=== PATIENT | male | born 1940 | race Caucasian/White ===

== ENCOUNTER 2017-08-05 16:55 | Emergency (ER) | payer OTHER ==
--- NOTE | 2017-08-05 17:18 | PDOC ---
History of Present Illness - General History Source: Patient Exam Limitations: No Limitations - History of Present Illness Initial Comments: 08/05/17 17:47 The patient is a 76 year old male with past medical history of CAD. arrhythmia, htn, who presents to the ED with complaints of left arm pain and numbness that began last night. The patient describes the pain as a stabbing pain that radiates from his left neck and shoulder down his left arm. The pain is worsened with movement of his arm and neck and was not relieved by the two tylenol he took earlier. The patient denies any shortness of breath, chest pain , or palpitations. He denies performing any heavy lifting or twisting his neck or back. He denies any fevers or chills. <Chikis Seth - Last Filed: 08/05/17 17:47> <Gretta Rust - Last Filed: 08/06/17 07:19> - General Chief Complaint: Back Pain Stated Complaint: NUMBNESS LEFT ARM Time Seen by Provider: 08/05/17 17:17 Past History <Chikis Seth - Last Filed: 08/05/17 17:47> <Gretta Rust - Last Filed: 08/06/17 07:19> - Past Medical History Allergies/Adverse Reactions: Allergies Allergy/AdvReac Type Severity Reaction Status Date / Time No Known Allergies Allergy Verified 08/05/17 16:57 Home Medications: Ambulatory Orders Allopurinol [Zyloprim -] 200 mg PO DAILY 08/05/17 Amlodipine Besylate 5 mg PO DAILY 08/05/17 Atorvastatin Ca [Lipitor] 40 mg PO HS 08/05/17 Dabigatran Etexilate Mesylate [Pradaxa -] 150 mg PO BID 08/05/17 Hydrochlorothiazide [Hctz -] 25 mg PO DAILY 08/05/17 Metoprolol Tartrate 1.5 tab PO BID 08/05/17 Midodrine HCl 20 mg PO DAILY 08/05/17 Review of Systems - Review of Systems Able to Perform ROS?: Yes Comments:: 08/05/17 17:47 GENERAL/CONSTITUTIONAL: No fever or chills. No weakness. HEAD, EYES, EARS, NOSE AND THROAT: No change in vision. No ear pain or discharge. No sore throat. CARDIOVASCULAR: No chest pain or shortness of breath. RESPIRATORY: No cough, wheezing, or hemoptysis. GASTROINTESTINAL: No nausea, vomiting, diarrhea or constipation. GENITOURINARY: No dysuria, frequency, or change in urination. MUSCULOSKELETAL: Present: left arm pain No neck or back pain. SKIN: No rash NEUROLOGIC: Present: left arm numbness No headache, vertigo, loss of consciousness. ENDOCRINE: No increased thirst. No abnormal weight change. HEMATOLOGIC/LYMPHATIC: No anemia, easy bleeding, or history of blood clots. ALLERGIC/IMMUNOLOGIC: No hives or skin allergy. All Other Systems: Reviewed and Negative <OswaldleobardoChikis - Last Filed: 08/05/17 17:47> *Physical Exam - Vital Signs Last Vital Signs Temp Pulse Resp BP Pulse Ox 98.1 F 60 20 171/74 97 08/05/17 16:57 08/05/17 16:57 08/05/17 16:57 08/05/17 16:57 08/05/17 16:57 <Chikis Seth - Last Filed: 08/05/17 17:47> - Physical Exam Comments: GENERAL: Awake, alert, and fully oriented, in no acute distress HEAD: No signs of trauma EYES: PERRLA, EOMI, sclera anicteric, conjunctiva clear ENT: Auricles normal inspection, hearing grossly normal, nares patent, oropharynx clear without exudates. Moist mucosa NECK: Normal ROM, supple, no lymphadenopathy, JVD, or masses LUNGS: Breath sounds equal, clear to auscultation bilaterally. No wheezes, and no crackles HEART: Regular rate and rhythm, normal S1 and S2, no murmurs, rubs or gallops ABDOMEN: Soft, nontender, normoactive bowel sounds. No guarding, no rebound. No masses MSK: Normal range of motion, no edema. No clubbing or cyanosis. No cords, erythema, or tenderness. +Soft tissue tenderness to L trapezius muscles, with soft mobile mass at the base of the neck, left lateral area. NEUROLOGICAL: Cranial nerves II through XII grossly intact. Normal speech, normal gait. Motor and sensation intact. SKIN: Warm, Dry, normal turgor, no rashes or lesions noted. <Gretta Rust - Last Filed: 08/06/17 07:19> Heart Score/ECG Review - ECG Impressions Comment:: EKG read 17:45- sinus rhythm 61 bpm, no acute ST/T changes. +PVC x1. <Gretta Rust - Last Filed: 08/06/17 07:19> ED Treatment Course - LABORATORY CBC & Chemistry Diagram: 08/05/17 17:50 08/05/17 17:50 <Gretta Rust - Last Filed: 08/06/17 07:19> Medical Decision Making - Medical Decision Making 08/05/17 17:42 Symptoms suggest radiculopathy. Pt with significant cardiac history, therefore will obtain EKG and CE to rule out. However, the soft tissue mass and tenderness throughout the trapezius would suggest the pain is originating locally. Will obtain CT c-spine and soft tissue neck to further evaluate. 08/05/17 19:[address] Joe at shift change. Awaiting radiology readings for CTs as well as lab results. If wnl, may f/u outpatient. <Gretta Rust - Last Filed: 08/06/17 07:19> *DC/Admit/Observation/Transfer - Attestations Scribe Attestion: 08/05/17 17:48 Documentation prepared by Chikis Seth, acting as mobile paramedical examiner for Gretta Rust MD. <Chikis Seth - Last Filed: 08/05/17 17:47> - Discharge Dispostion Admit: No <Gretta Rust - Last Filed: 08/06/17 07:19> Diagnosis at time of Disposition: Cervical radiculopathy - Discharge Dispostion Disposition: HOME Condition at time of disposition: Stable - Patient Instructions Additional Instructions: For the pain take Tylenol as directed on the bottle. I'm giving you a steroid that should also help with the inflammation and pain. Otherwise U can try heat or ice. We will give you a cervical collar that you can wear if it is helpful. When you get back to [place] follow-up with your doctor regarding further management. Return to the emergency department immediately with ANY new, persistent or worsening symptoms. Continue any medications as previously prescribed by your physician. You should follow up with your primary doctor as soon as possible regarding today's emergency department visit. . Please make sure your doctor reviews the results of your emergency evaluation. Thank you for coming to the Emergency Department today for your care. It was a pleasure to see you today. Please note that your evaluation is INCOMPLETE until you follow-up with your doctor.
[2017-08-05 17:26] VITALS: BP 171/74; PULSE 60; TEMP 98.1; BMI 25.2
[2017-08-05 18:46] LABS: BASO % 0.6 % (0-2.0); EOS % 1.4 % (0-4.5); HEMATOCRIT 44.9 % (35.4-49); HEMOGLOBIN 14.6 GM/dl (11.7-16.9); LYMPH % 7.2 % (8-40); MCH 25.6 pg (25.7-33.7); MCHC 32.5 g/dl (32.0-35.9); MEAN CELL VOLUME 78.6 fl (80-96); MEAN PLT VOLUME 8.2 fl (7.5-11.1); MONO % 6.7 % (3.8-10.2); NEUT % 84.1 % (42.8-82.8); PLATELET COUNT 420 K/MM3 (134-434); RBC 5.72 M/mm3 (4.00-5.60); RDW 15.8 % (11.9-15.9); WHITE BLOOD COUNT 7.1 K/mm3 (4.0-10.8)
[2017-08-05 18:54] LABS: ALBUMIN 4.3 g/dl (3.5-5.0); ALK PHOS 79 U/L (32-92); ANION GAP 8 (8-16); BILIRUBIN,TOTAL 0.7 mg/dl (0.2-1.0); BLOOD UREA NITROGEN 13 mg/dl (7-18); CALCIUM 9.5 mg/dl (8.4-10.2); CHLORIDE 100 mmol/L (98-107); CO2 29 mmol/L (22-28); CREATININE 1.1 mg/dl (0.6-1.3); GLUCOSE,RANDOM 100 mg/dl (74-106); POTASSIUM 4.7 mmol/L (3.5-5.1); SGOT/AST 21 U/L (10-42); SGPT/ALT 19 U/L (10-40); SODIUM 137 mmol/L (136-145)
[2017-08-05] MEDS ORDERED: traMADol HCL 50 MG TABLET PO ONE (18:59)
[2017-08-05] MEDS ORDERED: traMADol HCL 50 MG TABLET ONE (19:03)
--- NOTE | 2017-08-05 19:22 | PDOC ---
*Physical Exam - Vital Signs Last Vital Signs Temp Pulse Resp BP Pulse Ox 98.1 F 60 20 171/74 97 08/05/17 16:57 08/05/17 16:57 08/05/17 16:57 08/05/17 16:57 08/05/17 16:57 ED Treatment Course - LABORATORY CBC & Chemistry Diagram: 08/05/17 17:50 08/05/17 17:50 - ADDITIONAL ORDERS Additional order review: Laboratory Results 08/05/17 17:50 Sodium 137 Potassium 4.7 Chloride 100 Carbon Dioxide 29 H Anion Gap 8 BUN 13 Creatinine 1.1 Creat Clearance w eGFR > 60 Random Glucose 100 Calcium 9.5 Total Bilirubin 0.7 AST 21 ALT 19 Alkaline Phosphatase 79 Creatine Kinase 31 L Total Protein 7.0 Albumin 4.3 08/05/17 17:50 RBC 5.72 H MCV 78.6 L MCHC 32.5 RDW 15.8 MPV 8.2 Neutrophils % 84.1 H Lymphocytes % 7.2 L Monocytes % 6.7 Eosinophils % 1.4 Basophils % 0.6 - Medications Given in the ED: ED Medications Discontinued Medications Generic Name Dose Route Start Last Admin Trade Name Freq PRN Reason Stop Dose Admin Tramadol HCl 50 mg 08/05/17 18:59 08/05/17 19:05 Ultram - PO 08/05/17 19:00 50 mg ONCE ONE Administration Progress Note - Progress Note Progress Note: 19:00 Care of this patient was transferred to md from Dr. Rust. Patient is a 76- year-old male who comes in complaining of pain radiating from his neck down his left arm. Patient was noted to have a soft tissue mass that most likely is secondary to spasm however Dr. Rust ordered a CAT scan to further image that mass and rule out a nodule or tumor. Patient's CAT scan is pending at this time otherwise he had a workup which showed a normal white count count and normal chemistries. Referring Physician: JEANNINE BILL Patient Name: KRISTEN TIAN THIS IS A PRELIMINARY REPORT FROM [facility] DATE OF SERVICE: 2017-08-05 18:21:04 IMAGES: [id number] EXAM: CT NECK without contrast HISTORY: Left neck mass COMPARISON: None. FINDINGS: The visualized paranasal sinus cavities clear. No evidence of mastoiditis. No neck soft tissue mass or lymphadenopathy. Normal epiglottis, vallecular and piriform sinuses. No tonsillar enlargement seen. No peritonsillar or retropharyngeal abscess. Normal sized adenoid. No airway compromise. No evidence of sialolithiasis. Small low-density 7 mm low density lesion seen in the left thyroid lobe. Lung apices are clear. THIS DOCUMENT HAS BEEN ELECTRONICALLY SIGNED Faheem Borja MD EXAM: CT CERVICAL SPINE HISTORY: Left upper extremity radiculopathy. COMPARISON: None. FINDINGS: Straightening of the curvature. There is also leftward curvature of the cervical spine. No acute fracture, subluxation or abnormal prevertebral soft tissue swelling noted. Facet joints intact and normally aligned. Spinous processes intact Underlying degenerative disc disease and facet arthropathy particularly at C3-4 through C6-7 with endplate osteophytes and disc bulging combination, indenting the thecal sac. There is a moderate to severe neuroforaminal narrowing noted at C6-7. No neck soft tissue hemorrhage or edema seen. No pneumothorax in the lung apices. THIS DOCUMENT HAS BEEN ELECTRONICALLY SIGNED Faheem Borja MD Patient's CAT scan shows that his symptoms are most likely due to chronic degenerative disease as evidenced on the CAT scan with disc bulging, endplate osteophytes and indenting of the thecal sac with moderate to severe neuroforaminal narrowing noted at C6-C7 specifically there is no soft tissue masses visualized on CAT scan Assessment and plan: This is a 76-year-old male who comes in complaining of pain radiating from his neck down to his left arm. Patient CAT scan shows degenerative changes with a narrowing of the neural foramen at C6-C7 and disc bulge. Patient was given an anti-inflammatory in the emergency room. Patient is unable to take nonsteroidal anti-inflammatories secondary to his blood thinners. Patient has a long complicated medication history so I recommended that he take Tylenol and discuss with his primary care doctor other medications. I did offer him a short course of oral by mouth leads which she did not want to take. *DC/Admit/Observation/Transfer Diagnosis at time of Disposition: Cervical radiculopathy - Discharge Dispostion Disposition: HOME Condition at time of disposition: Stable Admit: No - Referrals - Patient Instructions Additional Instructions: For the pain take Tylenol as directed on the bottle. I'm giving you a steroid that should also help with the inflammation and pain. Otherwise U can try heat or ice. We will give you a cervical collar that you can wear if it is helpful. When you get back to [place] follow-up with your doctor regarding further management. Return to the emergency department immediately with ANY new, persistent or worsening symptoms. Continue any medications as previously prescribed by your physician. You should follow up with your primary doctor as soon as possible regarding today's emergency department visit. . Please make sure your doctor reviews the results of your emergency evaluation. Thank you for coming to the Emergency Department today for your care. It was a pleasure to see you today. Please note that your evaluation is INCOMPLETE until you follow-up with your doctor. - Post Discharge Activity
[2017-08-05 20:16] LABS: TROPONIN I (DFP) < 0.03 ng/ml (0.03-0.50)
[2017-08-05] MEDS ORDERED: DEXAMETHASONE SOD PHOSPHATE 10 MG/1 ML VIAL IVPUSH ONE (20:28)
[2017-08-05] MEDS ORDERED: DEXAMETHASONE SOD PHOSPHATE 10 MG/1 ML VIAL ONE (20:28)
--- NOTE | 2017-08-07 17:00 | EKG ---
Test Reason : Blood Pressure : / mmHG Vent. Rate : 061 BPM Atrial Rate : 061 BPM P-R Int : 172 ms QRS Dur : 084 ms QT Int : 428 ms P-R-T Axes : 041 -20 079 degrees QTc Int : 430 ms SINUS RHYTHM WITH OCCASIONAL PREMATURE VENTRICULAR COMPLEXES NONSPECIFIC ST AND T WAVE ABNORMALITY CANNOT RULE OUT SEPTAL INFARCT ABNORMAL ECG NO PREVIOUS ECGS AVAILABLE Confirmed by ESTRELLITA VEGA MD ([id number]) on 08/07/2017 5:00:04 PM Referred By: DR PAEZ Confirmed By:ESTRELLITA VEGA MD
== END 2017-08-05 20:37 | disposition home or self-care (01) ==
LOC: FER 16:55
PROC: 3E033GC Introduction of Other Therapeutic Substance into Peripheral Vein, Percutaneous Approach (ICD-10-PCS; principal; 2017-08-05)
DX: M54.12 Radiculopathy, cervical region (principal); I25.10 Atherosclerotic heart disease of native coronary artery without angina pectoris; I10 Essential (primary) hypertension; I49.9 Cardiac arrhythmia, unspecified
CPT/HCPCS: 36415; 70490-TC; 72125-TC; 80053; 82550; 84484; 85025; 93005; 99283-25